=== PATIENT | male | born 1935 | race Caucasian/White ===

== ENCOUNTER 2017-04-30 16:56 | Inpatient (IN) | payer MEDICARE, OTHER ==
[~2017-04-30] VITALS: Ht 175.3 cm; Wt 95.0 kg
[2017-04-30] MEDS ORDERED: Polyethylene Glycol (PEG) 17 Gm Powder PO PRN (17:05)
[2017-04-30] MEDS ORDERED: Ondansetron 2 mg/mL 2 mL Inj IVPUSH PRN (17:05)
[2017-04-30] MEDS ORDERED: Alum-Mag Hydrox-Simeth 30 mL Suspension PO PRN (17:05)
[2017-04-30 17:15] VITALS: BP 177/87; PULSE 80; RESP 18; O2SAT 98
[2017-04-30 17:58] LABS: EOSINOPHILS % (AUTO) 3.8 % (0-5); MONOCYTES % (AUTO) 11.6 % (4-12); Mean Corpuscular Hemoglobin 30.3 pg (27.0-35.0); NEUTROPHILS % (AUTO) 62.6 % (40-74); Platelet Count 111 bil/L (150-400)
[2017-04-30] MEDS ORDERED: METO-272 PO (18:16)
[2017-04-30] MEDS ORDERED: GABA-502 PO (18:16)
[2017-04-30] MEDS ORDERED: FINA5TAB9 PO (18:16)
[2017-04-30] MEDS ORDERED: GLIP10TA10 PO (18:16)
[2017-04-30] MEDS ORDERED: INSU100I13 SUBQ (18:16)
[2017-04-30] MEDS ORDERED: ASPI-973 PO (18:16)
[2017-04-30] MEDS ORDERED: TAMS0.4C29 PO (18:16)
[2017-04-30] MEDS ORDERED: CHOL200047 PO (18:16)
[2017-04-30] MEDS ORDERED: OMEG-38 PO (18:16)
[2017-04-30] MEDS ORDERED: METF500T4 PO (18:16)
[2017-04-30] MEDS ORDERED: LISI-567 PO (18:16)
[2017-04-30 18:20] LABS: INR 0.94 ratio
[2017-04-30] MEDS ORDERED: Dextrose 10% 250 ML IV PRN (18:25)
[2017-04-30] MEDS ORDERED: Glucose 40% Oral Gel 15 Gm Tube PO PRN (18:25)
--- NOTE | 2017-04-30 18:33 | PCM.HPMED ---
Subjective Date of Service Apr 30, 2017 Primary Provider: Admitting Physician: Gee Arenas MD Primary Care Physician: Robe Becker MD Attending Physician: Gee Arenas MD Chief Complaint: Right leg swelling and pain History of Present Illness: 82-year-old male with a history of DVT and PE in 2005 was taken off of warfarin about 6 months ago. He noted that his leg was becoming a little swollen and painful 04/28, it has gotten progressively worse to the point where he could not walk on it today. He went to see his PMD for evaluation or to the urgent care clinic Doppler study showed extensive right lower extremity DVT, CT angiogram of the chest showed no PE. His denied having chest pain, dyspnea, nausea or vomiting or any other symptoms other than the right lower extremity swelling. Review of Systems: Gen.: No fevers chills weight loss weight gain Eyes: no visual disturbances or blurring vision HEENT: No nose/throat drainage, no pain in ears or throat, no hearing loss Lymph: No lymph nodes noted Cardiac: No chest pain, orthopnea, PND, palpitations ,or dyspnea on exertion Bilateral pedal edema right much greater than left. Pulmonary: no cough, wheezing or bringing up of sputum GI: No anorexia nausea vomiting blood or black in the stool : no dysuria hematuria urinary frequency or decrease in urine output Musculoskeletal: Joint swelling no joint pain no new muscle aches or back pain Neuro: No syncope, seizures no loss of consciousness no new focal weakness, numbness or tingling Psychiatric: New new anxiety insomnia or depression Endocrine: No new heat or cold intolerances polyuria or polydipsia Hematology: No lymphadenopathy or easy bleeding or bruising noted skin: No new rashes, stasis dermatitis Allergies Coded Allergies: No Known Allergies (Verified , 04/30/17) Home Medications Aspirin 81 mg daily Finasteride 5 mg at bedtime Gabapentin 300 by mouth twice a day Lisinopril 10 mg daily Toprol-XL 50 mg daily Tamsulosin 0.4 mg at bedtime Cholecalciferol 2000 units daily [place] threes plus daily 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 RARELY SMOKED. FEW A DAY WHEN HE DID FOR A FEW YRS.) Exam Vital Signs Vital Sign - Last Date Time Temp Pulse Resp B/P Pulse Ox O2 Delivery O2 Flow Rate FiO2 04/30/17 17:15 36.8 80 18 177/87 98 Room Air Exam Gen.- A+ O 3 no apparent distress. Obese male lying in bed Eyes- open conjunctiva clear, pupils equal nonicteric Mouth- oral mucosa moist, no exudate ENT- ears normal, nose normal Neck- supple/trach midline CVS- RRR no murmur or gallop Bilateral lower extremity edema, the right one is much larger and tighter than the left. Well up into the thigh Lungs- CTA GI- NABS/NT soft Musc- moving 4 no obvious deformity Neuro- cranial nerves II through XII intact to gross examination, nonfocal Skin- warm and dry, no rashes/lesions/wounds noted Psych- pleasant and appropriate, Lab and Diagnostics Result Diagram: 04/30/17174904/30/171749 X-Rays, CTs and MRIs US VEINOUS LEG DUPLEX UNILATERAL, RIGHT: Gloria Rick MD, PhD on 2016 at 13:55 Abnormal study demonstrating extensive deep vein thrombosis involving the right lower extremity. Dictated by: Gloria Rick MD, PhD on 04/30/2017 at 13:55 CT ANGIO CHEST : Thiago Alfaro M.D. on 04/30/2017 at 14:10 1. No pulmonary emboli. 2. No acute pulmonary process is suspected. 3. Heterogeneity of the upper portion of the right kidney is of uncertain significance and probably is related to volume averaging from overlying structures. However, the right renal lesion is difficult to exclude and if the patient is experiencing hematuria or other suspicious renal laboratory values, please consider a dedicated CT urogram. Dictated by: Thiago Alfaro M.D. on 04/30/2017 at 14:10 Assessment & Plan 82-year-old male admitted 04/30 with extensive DVT right lower extremity after being taken off warfarin 6 months earlier #DVT- -no PE symptoms of by CT course history - plan is for thrombectomy in the morning or at least evaluation by cardiology may do so -Dose Lovenox. This evening holding in the a.m. and not starting anticoagulation until there is a plan in place. #Diabetes -Decreasing dose of Lantus, holding metformin/glyburide -Sliding scale insulin until patient resumes diet he will be nothing by mouth at midnight -Continue gabapentin for diabetic neuropathy #HTN/-continue lisinopril/metoprolol #BPH-continue Flomax/finasteride #Prophylaxis-DVT no SCDs contraindicated in this setting, is getting full strength Lovenox at least one time tonight and then we will anticoagulate as per cardiology direction, GI not indicated #Disposition- patient full code from independent living his POA he tells me his name Sal Dukeers not sure if he has got paperwork so we should do that before he gets discharged Gee Arenas MD Apr 30, 2017 18:33
--- NOTE | 2017-04-30 19:22 | NUR ---
Arrival to Floor Patient arrives to floor in wheelchair as a direct admit. Patient alert and oriented upon arrival, states that pain is with a tolerable level. IV started per orders in left forearm. Care is ongoing.
[2017-04-30 20:03] VITALS: BP 158/74; PULSE 69; RESP 17; O2SAT 97
[2017-04-30] MEDS: Insulin LISPRO 300 Unit/3 mL Inj SUBQ SCH (22:00)
[2017-04-30] MEDS: Insulin GLARgine 100 Unit/mL Syringe SUBQ SCH (22:18)
[2017-04-30 23:41] VITALS: BP 121/60; PULSE 71; RESP 17; O2SAT 96
--- NOTE | 2017-05-01 04:04 | NUR ---
Activity pt has had an uneventful night. he has been resting in bed. he says he does not have any pain while laying in bed. he has been using his urinal independently at bedside. VSS on RA with no complaints of SOB. call light within reach, bed in low position, hourly rounding continues.
[2017-05-01 05:23] VITALS: BP 132/70; PULSE 77; RESP 17; O2SAT 96
[2017-05-01 06:00] LABS: BASOPHILS % (AUTO) 1.6 % (0-3); EOSINOPHILS % (AUTO) 5.7 % (0-5); MONOCYTES % (AUTO) 11.6 % (4-12); Mean Corpuscular Volume 92.9 fL (81-100); NEUTROPHILS % (AUTO) 57.1 % (40-74); Platelet Count 141 bil/L (150-400)
[2017-05-01 06:17] LABS: INR 0.96 ratio
[2017-05-01] MEDS: Insulin LISPRO 300 Unit/3 mL Inj SUBQ SCH ×4 (08:00→21:32)
[2017-05-01] MEDS: Omega-3 Fatty Acids 1,000 mg Capsule PO SCH (08:30)
[2017-05-01] MEDS: MeTOProlol XL 50 mg ER24 Tablet PO SCH (09:22)
--- NOTE | 2017-05-01 13:08 | NUR ---
Activity / Lovenox Pt refuses to use urinal and ambulates to bathroom with cane and staff SBA. Activity limited to bathroom only. MD aware Per MD Do not hold Lovenox. Please give Lovenox now. Relayed this to MD hospitalist. Care continues
--- NOTE | 2017-05-01 13:45 | PCM.PNMED ---
Subjective Date of Service May 01, 2017 Subjective Patient is a bit irritated he does not know the plan. I called cardiology Dr. Ryan for him. Dr. Ryan is coming. The plan is for thrombectomy today. Other than the leg bothering him and wanting to get on with things, he has no chest pain, no dyspnea, no nausea or vomiting. Exam Vital Signs Vital Sign - Last Date Time Temp Pulse Resp B/P Pulse Ox O2 Delivery O2 Flow Rate FiO2 05/01/17 05:23 36.7 77 17 132/70 96 Room Air Intake and Output 04/30/17 04/30/17 05/01/17 Cumulative From/Thru 15:00 23:00 07:00 04/30/17 17:24 - 05/01/17 05:23 Intake Total 318 ml 250 ml 568 ml Output Total 100 ml 350 ml 450 ml Balance 218 ml -100 ml 118 ml Intake Oral 318 ml 250 ml 568 ml Output Urine Total 100 ml 350 ml 450 ml # Voids 1 1 # Bowel Movements 0 0 Exam Gen.- A+ O 3 no apparent distress. Obese male lying in bed Eyes- open conjunctiva clear, pupils equal nonicteric Mouth-normal limits ENT-ears no deformity, nose no deformity, hearing intact Neck- supple/trach midline CVS- RRR Bilateral lower extremity edema, the right one is much larger and tighter than the left. Well up into the thigh Lungs-normal rate, no accessory muscle usage GI-generous abdomen Musc- moving 4 no obvious deformity Neuro- cranial nerves II through XII intact to gross examination, nonfocal Skin- warm and dry, no rashes/lesions/wounds noted Psych- pleasant and appropriate, Lab and Diagnostics Result Diagram: 05/01/17 0520 05/01/17 0520 X-Rays, CTs and MRIs US VEINOUS LEG DUPLEX UNILATERAL, RIGHT: Gloria Rick MD, PhD on 2016 at 13:55 Abnormal study demonstrating extensive deep vein thrombosis involving the right lower extremity. Dictated by: Gloria Rick MD, PhD on 04/30/2017 at 13:55 CT ANGIO CHEST : Thiago Alfaro M.D. on 04/30/2017 at 14:10 1. No pulmonary emboli. 2. No acute pulmonary process is suspected. 3. Heterogeneity of the upper portion of the right kidney is of uncertain significance and probably is related to volume averaging from overlying structures. However, the right renal lesion is difficult to exclude and if the patient is experiencing hematuria or other suspicious renal laboratory values, please consider a dedicated CT urogram. Dictated by: Thiago Alfaro M.D. on 04/30/2017 at 14:10 Assessment & Plan 82-year-old male admitted 04/30 with extensive DVT right lower extremity after being taken off warfarin 6 months earlier 05/01 blood sugar control adequate, blood pressure control no changes. Awaiting cardiology plans. #DVT- -no PE symptoms of by CT - plan is for eval by cards/potential thrombectomy 05/01 -Enoxaparin 1 mg/kilogram every 12 will start warfarin or other anticoagulant as per cardiology direction. #Diabetes-blood sugar 170-20 05/01 no changes will patient is nothing by mouth preop. -Decreasing dose of Lantus, holding metformin/glyburide -Sliding scale insulin until patient resumes diet he will be nothing by mouth at midnight -Continue gabapentin for diabetic neuropathy #HTN/-continue lisinopril/metoprolol #BPH-continue Flomax/finasteride #Prophylaxis-DVT no SCDs contraindicated in this setting, is getting full strength Lovenox at least one time tonight and then we will anticoagulate as per cardiology direction, GI not indicated #Disposition- patient full code from independent living his POA he tells me his name Sal Dukeers not sure if he has got paperwork so we should do that before he gets discharged Gee Arenas MD May 01, 2017 13:45
--- NOTE | 2017-05-01 14:00 | NUR ---
Room change Pt moves up to [facility] 3022. Report given to receiving nurse. All belongings with pt. Plan explained to pt and family at bedside. Pt taken via bed to [facility] by staff.
[2017-05-01 14:50] VITALS: BP 155/73; PULSE 62; RESP 18; O2SAT 96
--- NOTE | 2017-05-01 15:19 | NUR ---
Transfer to [facility] Pt arrived to room 3022 at ~1410 this afternoon, arrived via bed. Vitals obtained, pt introduced to staff and room and call light. Pt states R leg is sore, denies any pain medication. No redness noted to R leg, noticibly more swollen than L leg. Pt states soreness is top of knee all the way up the thigh. Pt amb to BR with cane, unsteady. Pt on RA, denies any SOB. Pt has been NPO since [place]. Bed in lowest, locked position and call light in reach.
--- NOTE | 2017-05-01 17:12 | CONS ---
[address] [address] CONSULTATION REPORT PATIENT: KARINA LYON : 1935 MR#: [id number] ADMIT: 04/30/2017 JOB ID: [id number] DATE OF SERVICE: 05/01/2017 CHIEF COMPLAINT: Swollen right leg. HISTORY OF PRESENT ILLNESS: This 82-year-old gentleman presented to the Urgent Care with swollen right leg. He has history of DVT in the past. He has history of pulmonary embolus and in 2005 he also had an IVC filter placed. He was started on Coumadin in 2009 and stayed on Coumadin for nearly 10-1/2 years. In October, his Coumadin was stopped. He did well up until recently when he started noticing swelling of his right leg. It got painful to the point where he sought immediate attention. He was admitted to the hospital and started on enoxaparin, and given the extent and high thrombus burden, I was asked to see him for consideration of catheter-directed thrombolysis. Currently the patient is not having any pain in his calves at rest. He states when he tries to walk, his right leg hurts. His right leg is swollen and has been so for approximately the last three days. PAST MEDICAL HISTORY: Significant for DVT and PE in 2005, status post IVC filter placement, status post acute [place] in 2005 with RCA stenting. History of acoustic neuroma. Benign prostatic . MEDICATIONS: At home: Aspirin, finasteride, gabapentin, lisinopril, Toprol, tamsulosin, cholecalciferol, [place]-3. PERSONAL HISTORY: He has no children and no siblings. His parents are . He used to smoked briefly about 40 years ago. Denies any alcohol or drug abuse. 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 REVIEW OF SYSTEMS: Comprehensive review of systems was done and pertinent negatives and positives are no fever, chills or rigors. No recent surgeries or upcoming surgeries. No TIAs, no strokes, no GI or bleeding. As mentioned, swelling in his right leg. FAMILY HISTORY: Negative for premature coronary artery disease. Both his parents as mentioned are . PHYSICAL EXAMINATION: Pulse 68, blood pressure 155/73. Neck is supple. No JVD. Chest: Clear. Heart sounds S1, S2, regular. No gallops. Abdomen is soft. Extremities: Right leg is red, it is swollen and the swelling extends up into his thigh. There is at least 2-3+ edema that extends into his thigh. FEED MIXER HELPER: Alert and oriented. IMAGING: CT scan negative for PE. Venous Doppler shows intraluminal thrombus that extends into the right common femoral vein, superficial vein and popliteal and also extends into the calf veins. 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 He should be on lifelong anticoagulation. With regards to catheter directed thrombolysis, given the extent of his thrombus burden, it is a reasonable procedure. I have explained the risks, benefits to the patient. It has tentatively been scheduled for . He should continue on enoxaparin twice daily till then. If there is significant reduction in his thrombus burden and it appears that he is responding to enoxaparin then I would recommend continuing with the enoxaparin. Of course, we could still plan ahead for Eliquis in order to reduce the risk of post thrombophlebitic syndrome down the line. I have discussed all this with the patient and he is willing to proceed ahead with Eliquis if deemed clinically reasonable. Next, with regard to his cardiac disease, I would recommend ongoing cardiac followup. Lastly he has never been worked up for a hypercoagulable state. I think it would be appropriate to do so. Hematology and GI consult would be recommended.
[2017-05-01 20:06] VITALS: BP 157/72; PULSE 68; RESP 16; O2SAT 96
[2017-05-01] MEDS: Insulin GLARgine 100 Unit/mL Syringe SUBQ SCH (21:31)
--- NOTE | 2017-05-02 04:37 | NUR ---
DVT at Right Extremity. Pt states some pain with ambulation at right leg, no need pain med when offered. 1+ pitting edema at bilateral LEs, right >left, no erythema or warm to touch, or no open area on skin. weak dorsalis pedis bilaterally. Scheduled Lovenox administered. Pt instructed limit activities to prevent dislodge of clots. Contradiction with SCDs. LEs elevated on pillow. Stable overnight.
[2017-05-02 06:14] VITALS: BP 144/76; PULSE 67; RESP 18; O2SAT 93
[2017-05-02] MEDS: Insulin LISPRO 300 Unit/3 mL Inj SUBQ SCH ×4 (07:58→21:02)
[2017-05-02] MEDS: Omega-3 Fatty Acids 1,000 mg Capsule PO SCH (08:06)
[2017-05-02] MEDS: MeTOProlol XL 50 mg ER24 Tablet PO SCH (08:07)
--- NOTE | 2017-05-02 09:13 | NUR ---
Social Work-initial assessment: Data:See initial assessment. Pt is a 82 y/o male who was admitted on 04/30/17 for DVT per H&P. Pt's insurance is [employer] and PCP is Robe Becker MD. EMR reviewed. Pt's readmission score is 3. SW met with pt at bedside, SW role explained. Pt is alert and oriented x3. Pt resides at in an apartment over a garage with 17 steps to enter. Pt uses a fww in the house and a cane outside of the house. Pt has no HH or SNF history. Pt does not drive and his friend Concetta assists with transportation. Pt has no jail care or VA benefits. SW discussed DPOA/ advanced directive, pt confirms this has been completed, SW encouraged a copy to be brought in. Pt confirms Concetta will be the one to pick him up at discharge. SW to follow for needs. SW provided phone number on white board in room. SW will continue to follow. Assessment;Pt who is independent at baseline. Plan:Pt to discharge home when medically stable via POV. SW to follow for needs. SW will continue to follow. PAZ De Leon Addendum: 05/02/17 at 0916 by THIERRY EDWARDS Amended: Links added.
[2017-05-02 13:21] VITALS: BP 154/72; PULSE 62; RESP 18; O2SAT 93
--- NOTE | 2017-05-02 16:10 | PCM.PNMED ---
Subjective Date of Service May 02, 2017 Subjective Patient reports some discomfort in calf but this improved since presentation. Denies any shortness of breath or palpitations. Otherwise no acute complaints though he has get the test is light by walking around on it this morning. Exam Vital Signs Vital Sign - Last Date Time Temp Pulse Resp B/P Pulse Ox O2 Delivery O2 Flow Rate FiO2 05/02/17 13:21 37.1 62 18 154/72 93 Room Air Intake and Output 05/01/17 05/01/17 05/02/17 Cumulative From/Thru 15:00 23:00 07:00 04/30/17 17:24 - 05/02/17 06:54 Intake Total 200 ml 200 ml 968 ml Output Total 680 ml 1130 ml Balance 200 ml -480 ml -162 ml Intake Oral 200 ml 200 ml 968 ml Output Urine Total 680 ml 1130 ml # Voids 5 6 # Bowel Movements 0 0 General: Alert, Oriented X3, Cooperative, No Acute Distress Mouth: Mucous Membr Moist/[place] Chest & Lungs: Clear to auscultation & percussion Cardiovascular: Regular Rate/Rhythm Extremities: Other (swelling left calf without any thin erythema. There is certainly tenderness, nonpitting edema. Severe pulses intact bilaterally. Extremities are well-perfused. ) Neurological: Grossly Neurologically Intact IVs and Medications Medications Reviewed: Medications were reviewed in detail Lab and Diagnostics Result Diagram: 05/01/17 0520 05/01/17 0520 X-Rays, CTs and MRIs US VEINOUS LEG DUPLEX UNILATERAL, RIGHT: Gloria Rick MD, PhD on 2016 at 13:55 Abnormal study demonstrating extensive deep vein thrombosis involving the right lower extremity. Dictated by: Gloria Rick MD, PhD on 04/30/2017 at 13:55 CT ANGIO CHEST : Thiago Alfaro M.D. on 04/30/2017 at 14:10 1. No pulmonary emboli. 2. No acute pulmonary process is suspected. 3. Heterogeneity of the upper portion of the right kidney is of uncertain significance and probably is related to volume averaging from overlying structures. However, the right renal lesion is difficult to exclude and if the patient is experiencing hematuria or other suspicious renal laboratory values, please consider a dedicated CT urogram. Dictated by: Thiago Alfaro M.D. on 04/30/2017 at 14:10 Assessment & Plan 82-year-old male admitted 04/30 with extensive DVT right lower extremity after being taken off warfarin 6 months earlier 05/01 blood sugar control adequate, blood pressure control no changes. Awaiting cardiology plans. #DVT- -no PE symptoms of by CT - plan for thrombectomy on 05/[address] Trevino -Enoxaparin 1 mg/kilogram every 12 will start warfarin or other anticoagulant as per cardiology direction. - We will consider transitioning to [facility] for discharge following completion of procedure. #Diabetes-blood sugar 170-20 05/01 no changes will patient is nothing by mouth preop. -Decreasing dose of Lantus, holding metformin/glyburide -Sliding scale insulin until patient resumes diet he will be nothing by mouth at midnight -Continue gabapentin for diabetic neuropathy #HTN/-continue lisinopril/metoprolol #BPH-continue Flomax/finasteride Pain Evaluation: Adequate Pain Control GI Prophylaxis: Not indicated VTE Prophylaxis: Sub-Q Enoxaparin Resuscitation Status: CPR: Attempt Resuscitation Time spent 25 minutes Diogenes Bowen DO May 02, 2017 16:10
--- NOTE | 2017-05-02 17:58 | NUR ---
RLE/plan Pt's RLE appeared much improved this AM. Remained edematous RUE > LUE. Measured at the calf and RLE 42cm and LLE 38.2cm. Pt reports some ache when ambulating but generally denies any pain. 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 Pt aware.
[2017-05-02 20:18] VITALS: BP 155/75; PULSE 67; RESP 16; O2SAT 96
[2017-05-02] MEDS: Insulin GLARgine 100 Unit/mL Syringe SUBQ SCH (21:00)
[2017-05-03 00:38] VITALS: BP 116/78; PULSE 91; RESP 16; O2SAT 95
[2017-05-03 04:36] VITALS: BP 151/73; PULSE 72; RESP 16; O2SAT 97
--- NOTE | 2017-05-03 05:35 | NUR ---
Right lower leg Right lower leg appears more swollen than left leg. patient reports pain in right leg only when ambulating. SBA with cane to bathroom. patient states "its much better than it was" lovenox shot given at 0100 per MD orders. vitals stable. will continue to monitor
[2017-05-03 06:29] LABS: INR 0.98 ratio
[2017-05-03] MEDS: Insulin LISPRO 300 Unit/3 mL Inj SUBQ SCH ×4 (07:57→22:00)
[2017-05-03] MEDS: MeTOProlol XL 50 mg ER24 Tablet PO SCH (07:58)
[2017-05-03] MEDS: Omega-3 Fatty Acids 1,000 mg Capsule PO SCH (07:58)
--- NOTE | 2017-05-03 09:16 | NUR ---
refusal of stool softeners Pt stated that he has not had a BM since 07/31/16. This RN offered pt stool softeners and pt refused stating that "this is normal for him."
--- NOTE | 2017-05-03 12:33 | NUR ---
ABBY Signed @ 8348 AM
--- NOTE | 2017-05-03 13:46 | PCM.PNMED ---
Subjective Date of Service May 03, 2017 Subjective Patient is somewhat frustrated as procedure he thought was going to occur today is now poorly scheduled for tomorrow Leg continues to cause him significant distress when walking what is not painful and lying in bed Continues to be more swollen demonstrated larger circumference when compared with left calf. Denies any acute complaints at this time. denies shortness of breath or chest pain specifically. Exam Vital Signs Vital Sign - Last Date Time Temp Pulse Resp B/P Pulse Ox O2 Delivery O2 Flow Rate FiO2 05/03/17 04:36 36.6 72 16 151/73 97 Room Air Intake and Output 05/02/17 05/02/17 05/03/17 Cumulative From/Thru 15:00 23:00 07:00 04/30/17 17:24 - 05/03/17 06:05 Intake Total 473 ml 1441 ml Output Total 525 ml 1655 ml Balance -52 ml -214 ml Intake Oral 473 ml 1441 ml Output Urine Total 525 ml 1655 ml # Voids 2 8 # Bowel Movements 0 Exam General: Alert, Oriented X3, Cooperative, No Acute Distress Mouth: Mucous Membranes Moist/[place] Chest & Lungs: Clear to auscultation & percussion Cardiovascular: Regular Rate/Rhythm Extremities: Swelling left calf without any thin erythema. There is certainly tenderness, nonpitting edema. Severe pulses intact bilaterally. Extremities are well-perfused. Neurological: Grossly Neurologically Intact IVs and Medications Medications Reviewed: Medications were reviewed in detail Lab and Diagnostics Result Diagram: 05/01/17 0505/01/17 05 X-Rays, CTs and MRIs US VEINOUS LEG DUPLEX UNILATERAL, RIGHT: Gloria Rick MD, PhD on 2016 at 13:55 Abnormal study demonstrating extensive deep vein thrombosis involving the right lower extremity. Dictated by: Gloria Rick MD, PhD on 04/30/2017 at 13:55 CT ANGIO CHEST : Thiago Alfaro M.D. on 04/30/2017 at 14:10 1. No pulmonary emboli. 2. No acute pulmonary process is suspected. 3. Heterogeneity of the upper portion of the right kidney is of uncertain significance and probably is related to volume averaging from overlying structures. However, the right renal lesion is difficult to exclude and if the patient is experiencing hematuria or other suspicious renal laboratory values, please consider a dedicated CT urogram. Dictated by: Thiago Alfaro M.D. on 04/30/2017 at 14:10 Assessment & Plan 82-year-old male admitted 04/30 with extensive DVT right lower extremity after being taken off warfarin 6 months earlier 05/01 blood sugar control adequate, blood pressure control no changes. Awaiting cardiology plans. #DVT- -no PE symptoms of by CT - plan for thrombectomy on 05/[address] Trevino -Enoxaparin 1 mg/kilogram every 12 will start warfarin or other anticoagulant as per cardiology direction. - We will consider transitioning to [facility] for discharge following completion of procedure. #Hypercoagulable state: Previous evaluation for cause of clotting was negative for routinely screening conditions, will not repeat at this time but life long anticoagulation certainly indicated #Diabetes-blood sugar 170-20 05/01 no changes will patient is nothing by mouth preop. -Decreasing dose of Lantus, holding metformin/glyburide -Sliding scale insulin until patient resumes diet he will be nothing by mouth at midnight -Continue gabapentin for diabetic neuropathy #HTN/-continue lisinopril/metoprolol #BPH-continue Flomax/finasteride Pain Evaluation: Adequate Pain Control GI Prophylaxis: Not indicated VTE Prophylaxis: Sub-Q Enoxaparin Resuscitation Status: CPR: Attempt Resuscitation Time spent 25 minutes Diogenes Bowen DO May 03, 2017 13:46
[2017-05-03 14:14] VITALS: BP 152/78; PULSE 71; RESP 16; O2SAT 97
[2017-05-03] MEDS: Insulin GLARgine 100 Unit/mL Syringe SUBQ SCH (20:02)
[2017-05-03 20:14] VITALS: BP 139/76; PULSE 65; RESP 16; O2SAT 96
--- NOTE | 2017-05-04 03:59 | NUR ---
NOC / NPO Continues w/ LE edema R>L. Skin is cool to the touch, warmer on R side as well. Encouraged LE elevation on pillows, patient declined to change position thru the noc. NPO since midnight for procedures in AM. VSS, Call light w/in reach. CTM for changes.
[2017-05-04 05:38] VITALS: BP 137/70; PULSE 69; RESP 16; O2SAT 94
[2017-05-04 06:26] LABS: APPEARANCE,URINE CLEAR (CLEAR,HAZY); COLOR,URINE YELLOW (YELLOW); OCCULT BLOOD,URINE TRACE (NEGATIVE); PH,URINE 5.5 (5.0-8.0); UROBILINOGEN,URINE NORMAL (NORMAL)
[2017-05-04 06:39] LABS: INR 0.96 ratio
[2017-05-04] MEDS: Insulin LISPRO 300 Unit/3 mL Inj SUBQ SCH ×4 (08:00→21:55)
[2017-05-04] MEDS: Omega-3 Fatty Acids 1,000 mg Capsule PO SCH (08:30)
[2017-05-04] MEDS: MeTOProlol XL 50 mg ER24 Tablet PO SCH (08:30)
--- NOTE | 2017-05-04 09:23 | DRSVH ---
PROCEDURE: US VEINOUS LEG DUPLEX UNILATERAL, RIGHT INDICATIONS: for DVT TECHNIQUE: Real-time imaging, as well as color and pulse Doppler interrogation, were performed of the lower extr emity deep veins from the inguinal ligament to the popliteal fossa. COMPARISON: 04/30/2017 FINDINGS: Persistent deep vein thrombosis is noted in the right lower extremity. There is occlusive t hrombosis of the common femoral and femoral veins proximally and in the mid section. There is mild no nphasic flow seen in the distal femoral vein suggesting partial recanalization. The right popliteal v ein remains occluded. IMPRESSION: Nearly complete persistent deep vein thrombosis in the right lower extremity, minimal nataliia w present in the distal femoral vein. Dictated by: Carlos Macdonald M.D. on 05/04/2017 at 9:18 Approved by: Carlos Macdonald M.D. on 05/04/2017 at 9:21
--- NOTE | 2017-05-04 10:00 | NUR ---
Procedure Pt changed mind regarding procedure that was scheduled this AM. Hospitalist requesting page to Dr Ramirez for review with pt at bedside. MD cr paged as requested by pt and MD. Pt remains NPO, at this time. Awaiting call back, will continue to monitor. Addendum: 05/04/17 at 1110 by MILTON MCGHEE RN No call back, MD aguilar again. Will continue to monitor, Addendum: 05/04/17 at 1223 by MILTON MCGHEE RN Dr Ramirez came to bedside, reviewed concerns with pt. Will place pt on scheduled for today as soon as possible. Will continue to monitor Addendum: 05/04/17 at 1345 by MILTON MCGHEE RN Off the unit for completion of Thrombectomy. Report given to Geoffrey Cao to be transferred to [place] [id number] after recovery. Addendum: 05/04/17 at 1612 by MILTON MCGHEE RN Pt transferred to 2009 - CCU, belongings and meds taken down by staff, report given to Sakshi Whitten.
[2017-05-04 12:16] VITALS: BP 171/81; PULSE 82; RESP 16; O2SAT 96
[2017-05-04 12:26] VITALS: BP 154/84
[2017-05-04] MEDS ORDERED: Heparin 1,000 Units/500 mL NS Premix IV ONE (13:14)
[2017-05-04] MEDS ORDERED: Heparin 10,000 Unit/1,000 mL NS Premix IV ONE (13:14)
[2017-05-04] MEDS ORDERED: Heparin 1,000 Unit/mL 10 mL Inj ONE (13:15)
[2017-05-04] MEDS ORDERED: fentaNYL-PF 50 mCg/mL 2 mL Inj ONE (13:54)
--- NOTE | 2017-05-04 14:47 | PCM.PNMED ---
Subjective Date of Service May 04, 2017 Subjective Patient is doing well today, lying in bed the pain in his right calf is not severe at all, much more tolerable. He has walked very little as this does exacerbate the pain, reports he is having an easier time walking to the bathroom but still significant distress when he puts weight on right foot. He talked with Dr. Trevino instrumentation manager earlier today, and the plan had been initially to proceed with thrombectomy but this morning patient was not sure. Dr. Trevino demonstrated significant clot still present, but was incurred some by improving condition. He gave patient the choice of initially elected to not proceed with surgery and rather to continue medical management and Coumadin therapy. Approximately one hour later however patient had change of thought felt he did want to proceed with thrombectomy, however at this time is surgical appointment had been canceled and he was placed to an add-on schedule later in the afternoon. Exam Vital Signs Vital Sign - Last Date Time Temp Pulse Resp B/P Pulse Ox O2 Delivery O2 Flow Rate FiO2 05/04/17 12:26 154/84 05/04/17 12:16 36.7 82 16 96 Room Air Intake and Output 05/03/17 05/03/17 05/04/17 Cumulative From/Thru 15:00 23:00 07:00 04/30/17 17:24 - 05/04/17 06:18 Intake Total 1036 ml 240 ml 2717 ml Output Total 825 ml 600 ml 3080 ml Balance 211 ml -360 ml -363 ml Intake Oral 1036 ml 240 ml 2717 ml Output Urine Total 825 ml 600 ml 3080 ml # Voids 8 # Bowel Movements 0 Exam General: Alert, Oriented X3, Cooperative, No Acute Distress Mouth: Mucous Membranes Moist/[place] Chest & Lungs: Clear to auscultation & percussion Cardiovascular: Regular Rate/Rhythm Extremities: Swelling left calf without any thin erythema. There is certainly tenderness, nonpitting edema. Dorsal pedis pulses intact bilaterally. Extremities are well-perfused. Neurological: Grossly Neurologically Intact IVs and Medications Medications Reviewed: Medications were reviewed in detail Lab and Diagnostics Result Diagram: 05/01/1751905/01/17 0520 X-Rays, CTs and MRIs US VEINOUS LEG DUPLEX UNILATERAL, RIGHT: Gloria Rick MD, PhD on 2016 at 13:55 Abnormal study demonstrating extensive deep vein thrombosis involving the right lower extremity. Dictated by: Gloria Rick MD, PhD on 04/30/2017 at 13:55 CT ANGIO CHEST : Thiago Alfaro M.D. on 04/30/2017 at 14:10 1. No pulmonary emboli. 2. No acute pulmonary process is suspected. 3. Heterogeneity of the upper portion of the right kidney is of uncertain significance and probably is related to volume averaging from overlying structures. However, the right renal lesion is difficult to exclude and if the patient is experiencing hematuria or other suspicious renal laboratory values, please consider a dedicated CT urogram. Dictated by: Thiago Alfaro M.D. on 04/30/2017 at 14:10 Assessment & Plan 82-year-old male admitted 04/30 with extensive DVT right lower extremity after being taken off warfarin 6 months earlier awaiting cardiology planned interventions. #DVT- -no PE symptoms of by CT - plan for thrombectomy on 05/[address] Trevino, though patient initially elected to forego this procedure earlier this morning he is now reconsidered and wishes to move forward. His placed on the surgical schedule unfortunately was removed and is now pending add-on procedure later this afternoon. Should procedure not be able to be conducted today he may have to wait as long as Sunday to proceed. -In the meantime we will continue Enoxaparin 1 mg/kilogram every 12hrs with plan to start warfarin following procedure. Should patient not undergo thrombolytic to me Dr. Trevino has recommended he be kept until reaching therapeutic INR given size of clot burden. #Hypercoagulable state: Previous evaluation for cause of clotting was negative for routinely screening conditions, will not repeat at this time but life long anticoagulation certainly indicated #Diabetes-blood sugar 170-20 05/01 no changes will patient is nothing by mouth preop. -Decreasing dose of Lantus, holding metformin/glyburide -Sliding scale insulin until patient resumes diet he will be nothing by mouth at midnight -Continue gabapentin for diabetic neuropathy #HTN/-continue lisinopril/metoprolol #BPH-continue Flomax/finasteride Disposition pending surgical procedure and/or therapeutic INR Pain Evaluation: Adequate Pain Control GI Prophylaxis: Not indicated VTE Prophylaxis: Sub-Q Enoxaparin Resuscitation Status: CPR: Attempt Resuscitation Time spent 25 minutes Diogenes Bowen DO May 04, 2017 14:47
[2017-05-04] MEDS ORDERED: Alteplase (Cathflo) Inj 10 MG in 0.9% Sodium Chloride 250 ML IV ONE ×2 (15:00→15:23)
[2017-05-04] MEDS ORDERED: Heparin 25,000 Unit/500 mL 0.45% NS Premix IV ONE (15:07)
--- NOTE | 2017-05-04 15:25 | DI95 ---
[address] [address] INTERVENTIONAL CARDIAC CATHETERIZATION PATIENT: KARINA LYON : 1935 MR#: [id number] ADMIT: 04/30/2017 JOB ID: [id number] PROCEDURE: 1. Catheter directed thrombolysis with EKOS. 2. Ultrasound guidance. 3. Venogram. INDICATION: Extensive DVT. The patient seemed to have an initial response to LMWH, with mild reduction in calf diameter but the next day he started havind leg discomfort and changed his mind and decided to proceed ahead with CDT PROCEDURAL DETAILS: The procedure was done via right popliteal approach with ultrasound guidance. With ultrasound guidance we were able to cannulate the popliteal vein. We accidentally inserted a micropuncture needle into the artery. Fifteen minutes of manual pressure was held to compress the popliteal artery. Following that, we were able to successfully redirect the micropuncture needle into the popliteal vein. The EKOS catheter and guide catheter were then placed in the common femoral vein. Fifty cm treatment length was chosen. The patient will have tPA infused for 6 hours. A venogram will be done subsequent to that. [facility]
[2017-05-04] MEDS ORDERED: Ondansetron 2 mg/mL 2 mL Inj IVPUSH PRN (15:55)
--- NOTE | 2017-05-04 15:59 | DRSVH ---
PROCEDURE: US GUIDE FOR VASCULAR ACCESS INDICATIONS: EKOS PROCEDURE IN FOOTWEAR MACHINERY INSTRUCTOR COMPARISON: None. FINDINGS: Technical assistance was provided in the Compensation Expert for venous access in the right leg. Acce ss to the right popliteal vein was provided for the referring physician. IMPRESSION: Limited exam for venous access in surgery Dictated by: Carlos Macdonald M.D. on 05/04/2017 at 15:56 Approved by: Carlos Macdonald M.D. on 05/04/2017 at 15:57
--- NOTE | 2017-05-04 16:09 | NUR ---
EKOS/Admit to CCU Pt Arrived to CCU at aprox 1530, with geochemical laboratory technician team. Dsg to R popliteal site well secured, c/d/i. RLE DP pulse palpable. tPA, coolant, heparin running per EKOS/food beverage supervisor orders. Heparin gtt infusing at 200units/hr to L wrist PIV, with NS TKO. VSS. SpO2 98% on RA. Pt denies pain. Per geochemical laboratory technician, plan is to pull sheath at 2230; pt to be NPO after 0000 to go back to geochemical laboratory technician at 0900 tomorrow morning.
[2017-05-04 16:19] VITALS: BP 138/71; PULSE 76; RESP 14; O2SAT 95
--- NOTE | 2017-05-04 18:15 | NUR ---
EKOS This RN noted sheet under RLE to be damp with clear fluid, notified flaking roll operator and Brine Supervisor. Drop Clipper contacting medical laboratory scientist to evaluate site; electroencephalographic technologist en route to evaluate. Pt denies pain, DP palpable. VSS. Addendum: 05/04/17 at 1921 by NERY MADERA RN laborer electroplating in, assessed EKOS and sheath, redressed the site.
[2017-05-04] MEDS: Heparin 10,000 Unit/1,000mL NS 10,000 UNIT in IV Premix 1 EACH IV SCH (18:45)
[2017-05-04 20:30] VITALS: BP 159/73; PULSE 78; RESP 13; O2SAT 98
[2017-05-04] MEDS ORDERED: [UNRECOGNIZED DRUG - OTHER] IV SCH (21:00)
[2017-05-04] MEDS ORDERED: HEPARIN IV SCH (21:00)
[2017-05-04] MEDS: Insulin GLARgine 100 Unit/mL Syringe SUBQ SCH (21:54)
[2017-05-05] VITALS (7 sets, daily range): BP systolic 121–163; BP diastolic 56–78; PULSE 65–82; RESP 13–17; O2SAT 93–97
[2017-05-05] MEDS ORDERED: Heparin Protocol Boluses IVPUSH PRN
--- NOTE | 2017-05-05 05:31 | NUR ---
O2/Heparin DVT gtt Pt had periods of apnea where he desaturated, SpO2 80%. Pt woke up and attempted to put patient on 2L NC. Pt initially refused. After low SpO2 a second time patient was persuaded to use Oxymask at 2LPM. PTT Heparin drawn at 0008 tonight resulted as 30.6; per MD written order, patient started on Heparin DVT/PE protocol of 18units/kg/hour. Heparin at 200units/hour stopped. Heparin 2units/ml solution infusing at 25ml/hour into right popliteal sheath. Sheath unchanged, pulses still weak to palpation.
[2017-05-05 07:48] LABS: BASOPHILS % (AUTO) 1.7 % (0-3); EOSINOPHILS % (AUTO) 6.9 % (0-5); MONOCYTES % (AUTO) 11.8 % (4-12); Mean Corpuscular Volume 90.8 fL (81-100); NEUTROPHILS % (AUTO) 53.4 % (40-74); Platelet Count 210 bil/L (150-400)
[2017-05-05] MEDS: Insulin LISPRO 300 Unit/3 mL Inj SUBQ SCH ×4 (08:00→21:45)
[2017-05-05] MEDS: Omega-3 Fatty Acids 1,000 mg Capsule PO SCH (08:30)
[2017-05-05] MEDS: MeTOProlol XL 50 mg ER24 Tablet PO SCH (08:30)
[2017-05-05] MEDS ORDERED: Heparin 1,000 Units/500 mL NS Premix IV ONE (09:27)
[2017-05-05] MEDS ORDERED: 0.9% Sodium Chloride 0 ML ONE (09:27)
[2017-05-05] MEDS ORDERED: Heparin 10,000 Unit/1,000 mL NS Premix IV ONE (09:28)
[2017-05-05] MEDS ORDERED: Alteplase (Cathflo) Inj 10 MG in 0.9% Sodium Chloride 250 ML IV ONE (09:30)
[2017-05-05] MEDS ORDERED: Heparin 1,000 Unit/mL 10 mL Inj ONE (10:06)
--- NOTE | 2017-05-05 12:44 | CS94 ---
[address] [address] DIAGNOSTIC CARDIAC CATHETERIZATION PATIENT: KARINA LYON : 1935 MR#: [id number] ADMIT: 04/30/2017 JOB ID: [id number] PROCEDURE NOTE -- CARDIAC CATHETERIZATION LABORATORY: SERVICE DATE: Sunday, May 05, 2017 ONLINE JOURNALIST: Jin Aguilar MD PROCEDURE: Venogram -- right lower extremity (post EKOS). CLINICAL DETAILS: This 82-year-old man presents to the Catheterization Laboratory for followup venogram, 16 hours after insertion of EKOS catheter to right popliteal venous access because of right lower extremity deep vein thrombosis. In the interim, he has had 6 hours of local thrombolytic infusion and heparin IV infusion. He is clinically stable. PROCEDURAL DETAILS: I discussed the procedure, including possible risks and complications with him; and he signed informed consent to proceed. In the Catheterization Laboratory, he was prepped sterilely and draped. RIGHT POPLITEAL VENOGRAM: Using the existing 6-Greek 10 cm side-arm sheath in the right popliteal vein, contrast was injected. Then consideration was given to reinserting EKOS catheter. He was placed prone. The sheath was exchanged sterilely for a new similar sheath. A long 0.035 J-tipped guidewire was used to enter the vein and then a superstiff Amplatz, a Versacore wire and an angled Glidewire were used. Because of uncertainty, the wire did not advance smoothly through the vein and re-insertion of the EKOS catheter was deferred. Procedure without difficulty. Patient tolerated procedure well. No complications. The popliteal venous sheath was removed and venous hemostasis was obtained without difficulty using manual pressure. The patient was transferred in stable condition from the Catheterization Laboratory back to the PCU unit for ongoing care including by the primary hospitalist service. I discussed the procedure findings and management considerations with the patient (no family present); with Cardiology; and with the hospitalist service including Dr. Paris. FINDINGS: Right popliteal venogram: Note, persistent venous filling defects with extensive collateralization. RECOMMENDATIONS: Continue standard treatment of DVT per your plan and protocol; including anticipate ongoing anticoagulation with heparin and oral anticholinergic coagulation.
--- NOTE | 2017-05-05 16:06 | PCM.PNMED ---
Subjective Date of Service May 05, 2017 Subjective Mr. Gonzáles states that he is doing quite well today. He has essentially been on bedrest secondary to the aborted EKOS procedure so cannot evaluate any pain with ambulation. He denies chest pain, dyspnea, SOB, or pain with deep inspiration. No significant overnight events Comprehensive ROS negative except as listed above. Exam Vital Signs Vital Sign - Last Date Time Temp Pulse Resp B/P Pulse Ox O2 Delivery O2 Flow Rate FiO2 05/05/17 12:00 36.4 79 17 142/63 97 Room Air 05/05/17 05:20 2.00 Intake and Output 05/04/17 05/04/17 05/05/17 Cumulative From/Thru 15:00 23:00 07:00 04/30/17 17:24 - 05/05/17 05:22 Intake Total 1532 ml 480 ml 4729 ml Output Total 300 ml 925 ml 4305 ml Balance 1232 ml -445 ml 424 ml Intake Oral 970 ml 0 ml 3687 ml IV Total 562 ml 480 ml 1042 ml Output Urine Total 300 ml 925 ml 4305 ml # Voids 8 # Bowel Movements 0 0 0 Exam Gen: A/O x3 pleasant cooperative gentleman in NAD Neck: Supple, non tender, no thyromegaly HEENT: PERRL, EOMI, no scleral icterus, no conjunctival pallor CV: RRR, no murmurs rubs or gallops Resp: Lungs CTA BL, no wheezing rales or rhonchi Abd: Soft, non tender, no organomegaly Extr: Left calf swollen and tender to palpation, peripheral pulses intact BL, no clubbing or cyanosis Neuro: CN 2-12 grossly intact, no focal neurologic deficit Psych: appropriate mood and affect. IVs and Medications IV Fluids 500 ml delivered with IV meds Medications Reviewed: Medications were reviewed in detail Lab and Diagnostics Item Value Date Time Red Blood Count 3.93 mil/mm3 L 05/05/17 07 Mean Corpuscular Volume 90.8 fL 05/05/17 07 Mean Corpuscular Hemoglobin 30.0 pg 05/05/17 07 Mean Corpuscular Hemoglobin Concent 33.1 % 05/05/17699 Red Cell Distribution Width 13.4 % 05/05/17699 Neutrophils (%) (Auto) 53.4 % 05/05/17 07 Lymphocytes (%) (Auto) 25.7 % 05/05/17 07 Monocytes (%) (Auto) 11.8 % 05/05/17 07 Eosinophils (%) (Auto) 6.9 % H 05/05/17 07 Basophils (%) (Auto) 1.7 % 05/05/17699 Estimat Glomerular Filtration Rate 77 mL/min 05/05/17699 Calcium Level 9.3 mg/dL 05/05/17699 Prothrombin Time 10.7 sec 05/05/17699 Prothromb Time International Ratio 1.00 ratio 05/05/17699 Activated Partial Thromboplast Time 48.7 sec H 05/05/17 1315 Fibrinogen 396 mg/dL H 05/05/17699 Result Diagram: 05/05/1769905/05/17699 X-Rays, CTs and MRIs US VEINOUS LEG DUPLEX UNILATERAL, RIGHT: -Abnormal study demonstrating extensive deep vein thrombosis involving the right lower extremity. Dictated by: Gloria Rick MD, PhD on 04/30/2017 at 13:55 CT ANGIO CHEST : Thiago Alfaro M.D. on 04/30/2017 at 14:10 1. No pulmonary emboli. 2. No acute pulmonary process is suspected. 3. Heterogeneity of the upper portion of the right kidney is of uncertain significance and probably is related to volume averaging from overlying structures. However, the right renal lesion is difficult to exclude and if the patient is experiencing hematuria or other suspicious renal laboratory values, please consider a dedicated CT urogram. Dictated by: Thiago Alfaro M.D. on 04/30/2017 at 14:10 . Assessment & Plan 82-year-old male admitted 04/30 with extensive DVT right lower extremity after being taken off warfarin 6 months earlier. Patient underwent attempted EKOS on , however the catheter was displaced and the procedure was aborted prematurely with the patient returning to the floor and placed on a Heparin Drip. DVT, POA, acute. Active -no PE symptoms of by CT -EKOS procedure on 05/05/17, this was aborted early due to displacement on TPA catheter -Patient returned to the floor on Heparin drip -Plan to transition the patient to oral anti-coagulation, either with Warfarin and Lovenox bridging, or NOAC depending upon patient preference and insurance coverage Hypercoagulable state, POA, chronic. Active -Previous evaluation for cause of clotting was negative for routinely screening conditions -will not repeat at this time but life long anticoagulation certainly indicated Diabetes mellitus type 2, POA, chronic. Active -Diabetic constant carb diet -Will adjust morning Lantus according to AM sugar, holding metformin/glyburide -Sliding scale insulin -Continue gabapentin for diabetic neuropathy Chronic conditions managed with home meds HTN/-continue lisinopril/metoprolol BPH-continue Flomax/finasteride Disposition: Patient essentially lives alone as his housemate is a long haul movers who will be gone for the next 2-3 weeks, has 17 stairs to negotiate to access apartment, would likely benefit from transitional placement pending return of functional status. Likely DC in 2-3 days. Pain Evaluation: Adequate Pain Control GI Prophylaxis: Not indicated VTE Prophylaxis: Other (Heparin drip) Resuscitation Status: CPR: Attempt Resuscitation Attending Statement The patient was seen and examined together with Dr. Esquivel on 05/05/2017 and I agree with the history, exam and plan as outlined in the note above. . Napoleon Esquivel DO May 05, 2017 16:06 Piyush Paris MD May 06, 2017 19:41
[2017-05-05] MEDS: Heparin 25K Unit/500mL 0.45 NS 25,000 UNIT in IV Premix 1 EACH IV SCH (16:58)
[2017-05-05] MEDS: Heparin 10,000 Unit/1,000mL NS 10,000 UNIT in IV Premix 1 EACH IV SCH (17:29)
--- NOTE | 2017-05-05 18:07 | NUR ---
EKOS sheath site/heparin gtt Pt had venous access sheath pulled in chemical lab supervisor at returned to to floor in stable condition. Dressing dry gauze and tegaderm, C/D/I with no bruising or drainage. Pedal pulses weak at baseline, non pitting edema bilaterally, somewhat more in right foot. Heparin gtt per DVT protocol, bolused PRN protocol. PIV intact, flushing well, no leaking or blood around it. Pt A&O, helps with turns and patient care. Frequent rounding continues.
[2017-05-05] MEDS: Insulin GLARgine 100 Unit/mL Syringe SUBQ SCH (21:47)
[2017-05-06] VITALS (8 sets, daily range): BP systolic 120–150; BP diastolic 61–78; PULSE 68–80; RESP 16–18; O2SAT 93–97
[2017-05-06 03:08] LABS: BASOPHILS % (AUTO) 1.6 % (0-3); EOSINOPHILS % (AUTO) 7.8 % (0-5); MONOCYTES % (AUTO) 11.3 % (4-12); Mean Corpuscular Volume 92.2 fL (81-100); Platelet Count 207 bil/L (150-400)
[2017-05-06 03:28] LABS: Magnesium 1.9 mg/dL (1.6-2.6); Phosphorus 3.4 mg/dL (2.5-4.9)
--- NOTE | 2017-05-06 06:12 | NUR ---
heparin gtt pts PTT elevated x2, decreased heparin gtt new rate running at 16units/kg/hr, pt with no signs of bleeding. next PTT at 0700.
[2017-05-06] MEDS: Heparin 25K Unit/500mL 0.45 NS 25,000 UNIT in IV Premix 1 EACH IV SCH (07:53)
[2017-05-06] MEDS: Omega-3 Fatty Acids 1,000 mg Capsule PO SCH (08:28)
[2017-05-06] MEDS: Insulin LISPRO 300 Unit/3 mL Inj SUBQ SCH ×4 (08:29→21:16)
[2017-05-06] MEDS: MeTOProlol XL 50 mg ER24 Tablet PO SCH (08:29)
--- NOTE | 2017-05-06 14:06 | NUR ---
Activity and Heparin IV Pt. sat on chair for lunch. He reported he normally uses a cane or a FWW at home. He ambulated in the hallway with a FWW and SBA after lunch. He walked 250 feet. Gait slow but steady. Heparin IV was stopped per Dr. Paris and Dr. Howard's order. Pt. to be on Lovenox SQ and Coumadin PO. Pt. agreeable with treatment plan.
--- NOTE | 2017-05-06 16:45 | NUR ---
Social Work Note: Continued Discharge Planning Data& Assessment: Per MD pt is not medically ready for discharge at this time. SW met with pt at bedside to check in and assess for any unmet needs. Pt denies any needs at this time. SW to follow up with pt regarding final PT recommendations when evaluation is complete. Pt states that he was able to ambulate the halls with nursing staff with no issues. Pt is now also on room air. SW to continue to follow. Plan: Anticipated discharge home via POV when medically ready. Pt denies any other needs at this time. SW to continue to follow. PAZ Guthrie
--- NOTE | 2017-05-06 16:47 | NUR ---
ABBY Signed PAZ Guthrie
[2017-05-06] MEDS: Heparin 10,000 Unit/1,000mL NS 10,000 UNIT in IV Premix 1 EACH IV SCH (18:05)
[2017-05-06] MEDS ORDERED: Glucose 40% Oral Gel 15 Gm Tube PO PRN (18:15)
--- NOTE | 2017-05-06 18:19 | PCM.PNMED ---
Subjective Date of Service May 06, 2017 Subjective Patient doing well today. She is to go home. . some concern due to his untreated DVT and undergoing heparin therapy. He will need to be anticoagulated appropriately and Lovenox should be adequate to bridge as an outpatient. Patient denies review of systems. Exam Vital Signs Vital Sign - Last Date Time Temp Pulse Resp B/P Pulse Ox O2 Delivery O2 Flow Rate FiO2 05/06/17 16:39 37.0 70 18 132/68 97 Room Air 05/05/17 05:20 2.00 Intake and Output 05/05/17 05/05/17 05/06/17 Cumulative From/Thru 15:00 23:00 07:00 04/30/17 17:24 - 05/06/17 05:54 Intake Total 1497 ml 608 ml 6834 ml Output Total 1100 ml 800 ml 6205 ml Balance 397 ml -192 ml 629 ml Intake Oral 756 ml 200 ml 4643 ml IV Total 741 ml 408 ml 2191 ml Output Urine Total 1100 ml 800 ml 6205 ml # Voids 2 10 # Bowel Movements 0 Exam Gen: A/O x3 pleasant cooperative gentleman in NAD CV: RRR, no murmurs rubs or gallops Resp: Lungs CTA BL, no wheezing rales or rhonchi Abd: Soft, non tender, no organomegaly Extr: Left calf swollen and non-tender to palpation, peripheral pulses intact BL Neuro: CN 2-12 grossly intact, no focal neurologic deficit Psych: appropriate mood and affect. IVs and Medications Medications Reviewed: Medications were reviewed in detail Lab and Diagnostics Result Diagram: 05/06/1725405/06/17254 X-Rays, CTs and MRIs US VEINOUS LEG DUPLEX UNILATERAL, RIGHT: -Abnormal study demonstrating extensive deep vein thrombosis involving the right lower extremity. Dictated by: Gloria Rick MD, PhD on 04/30/2017 at 13:55 CT ANGIO CHEST : Thiago Alfaro M.D. on 04/30/2017 at 14:10 1. No pulmonary emboli. 2. No acute pulmonary process is suspected. 3. Heterogeneity of the upper portion of the right kidney is of uncertain significance and probably is related to volume averaging from overlying structures. However, the right renal lesion is difficult to exclude and if the patient is experiencing hematuria or other suspicious renal laboratory values, please consider a dedicated CT urogram. Dictated by: Thiago Alfaro M.D. on 04/30/2017 at 14:10 . Assessment & Plan 82-year-old male admitted 04/30 with extensive DVT right lower extremity after being taken off warfarin 6 months earlier. Patient underwent attempted EKOS on , however the catheter was displaced and the procedure was aborted prematurely with the patient returning to the floor and placed on a Heparin Drip. Extensive acute DVT, POA, Active -no PE symptoms of by CT -EKOS procedure on 05/05/17, this was aborted early due to displacement on TPA catheter -Continue heparin drip -Warfarin with Lovenox bridging started today 05/06/17 Hypercoagulable state, POA, chronic. Active -Previous evaluation for cause of clotting was negative for routinely screening conditions -will not repeat at this time but life long anticoagulation certainly indicated -Consider outpatient follow-up with hematology for discontinuation of warfarin for clotting workup Diabetes mellitus type 2, POA, chronic. Active -Diabetic constant carb diet -Increase Lantus to 15 units at bedtime -Moderate correctional with no sliding scale currently -Continue gabapentin for diabetic neuropathy Chronic conditions managed with home meds HTN/-continue lisinopril/metoprolol BPH-continue Flomax/finasteride Disposition: Patient essentially lives alone as his housemate is a long haul telegraph repeater mechanic who will be gone for the next 2-3 weeks, has 17 stairs to negotiate to access apartment. Physical therapy ordered for evaluation late in the day. Likely assessment tomorrow. Discharged likely in 1-2 days Pain Evaluation: Adequate Pain Control GI Prophylaxis: Not indicated VTE Prophylaxis: Other (Heparin drip) Resuscitation Status: CPR: Attempt Resuscitation Attending Statement The patient was seen and examined together with Dr. Howard on 05/06/2017 and I agree with the history, exam and plan as outlined in the note above. . John Howard DO May 06, 2017 18:19 Piyush Paris MD May 06, 2017 19:42
--- NOTE | 2017-05-06 19:04 | PCM.CONPHA ---
Subjective Date of Service: May 06, 2017 Right leg swelling and pain Reason for Pharmacy Consult: Anticoagulation Management Objective Vital Signs Date Time Temp Pulse Resp B/P Pulse Ox O2 Delivery O2 Flow Rate FiO2 05/06/17 16:39 37.0 70 18 132/68 97 Room Air 05/06/17 11:31 36.7 74 16 123/61 95 Room Air 05/06/17 08:50 74 05/06/17 08:16 36.6 76 18 139/78 94 Room Air 05/06/17 03:42 36.6 74 17 120/68 93 Room Air 05/06/17 00:44 80 05/05/17 23:36 36.6 82 16 127/65 93 Room Air 05/05/17 19:53 37.0 81 16 163/78 95 Room Air Intake and Output 05/04/17 05/05/17 05/06/17 00:00 00:00 00:00 Intake Total 1509 ml 1772 ml 1977 ml Output Total 1350 ml 900 ml 2025 ml Balance 159 ml 872 ml -48 ml Weight (Kilograms): 95.100 Height (Feet): 5 Height (Inches): 9.00 Test 05/03/17 05:45 05/04/17 04:00 05/05/17 07:00 05/06/17 02:55 Hemoglobin A1c 8.7% (4.8-5.6) Urine Color Yellow (YELLOW) Urine Appearance Clear (CLEAR,HAZY) Urine pH 5.5 (5.0-8.0) Urine Specific [place] 1.020 (1.003-1.035) Urine Protein Negativemg/dL (NEG,TRACE) Urine Glucose (UA) 100mg/dL (NEGATIVE) Urine Ketones Negativemg/dL (NEGATIVE) Urine Occult Blood Trace (NEGATIVE) Urine Nitrite Negative (NEGATIVE) Urine Bilirubin Negative (NEGATIVE) Urine Urobilinogen Normalmg/dL (NORMAL) Urine Leukocyte Esterase Negative (NEGATIVE) Urine RBC 3-10/hpf (0-2) Urine WBC 0-5/hpf (0-5) Urine Epithelial Cells Occasional/hpf (NONE-MOD) Urine Crystals None seen (NONE SEEN) Urine Bacteria Few/hpf (NONE-FEW) Urine Hyaline Casts None/lpf (NONE) Urine Granular Casts None seen (NONE SEEN) Urine Waxy Casts None seen (NONE SEEN) Urine Red Blood Cell Casts None seen (NONE SEEN) Urine White Blood Cell Casts None seen (NONE SEEN) Urine Mucus None seen (None Seen) Urine Trichomonas None seen (NONE SEEN) Urine Yeast None (NONE SEEN) Urinalysis Comment None Urine Culture Reflexed Not indicated Hold Urine Received (Received) Fibrinogen 396mg/dL (157-380) White Blood Count 6.3th/mm3 (3.8-10.1) Red Blood Count 3.70mil/mm3 (4.40-5.80) Hemoglobin 11.1g/dL (13.8-17.2) Hematocrit 34.1% (41.0-50.0) Mean Corpuscular Volume 92.2fL (81-100) Mean Corpuscular Hemoglobin 30.0pg (27.0-35.0) Mean Corpuscular Hemoglobin Concent 32.6% (32.0-37.0) Red Cell Distribution Width 13.4% (12.3-15.4) Platelet Count 207bil/L (150-400) Neutrophils (%) (Auto) 52.0% (40-74) Lymphocytes (%) (Auto) 27.0% (14-46) Monocytes (%) (Auto) 11.3% (4-12) Eosinophils (%) (Auto) 7.8% (0-5) Basophils (%) (Auto) 1.6% (0-3) Prothrombin Time 10.7sec (8.1-12.5) Prothromb Time International Ratio 1.00ratio Sodium Level 138mEq/L (134-144) Potassium Level 4.2mEq/L (3.5-5.2) Chloride Level 102mEq/L (97-108) Carbon Dioxide Level 22mmol/L (18-29) Blood Urea Nitrogen 18mg/dL (8-27) Creatinine 1.17mg/dL (0.76-1.27) Estimat Glomerular Filtration Rate 63mL/min (>59) Glucose Level 228mg/dL (60-99) Calcium Level 9.1mg/dL (8.5-10.1) Phosphorus Level 3.4mg/dL (2.5-4.9) Magnesium Level 1.9mg/dL (1.6-2.6) Total Bilirubin 0.2mg/dL (0.0-1.2) Aspartate Amino Transf (AST/SGOT) 25U/L (0-50) Alanine Aminotransferase (ALT/SGPT) 24U/L (0-44) Alkaline Phosphatase 51U/L (25-160) Total Protein 6.6g/dL (6.4-8.4) Albumin 3.2g/dL (3.4-5.0) Test 05/06/17 08:25 Activated Partial Thromboplast Time 114.0sec (22.8-33.0) Assessment/Plan Assessment/Plan WARFARIN MANAGEMENT A\ 82yo M admitted for DVT Currently on a Heparin drip and will transition to Enoxaparin tonight and bridge to Warfarin for outpatient. Current INR =1 Goal INR =2-3 HCT+34.1 Ird=993 P\ Will start Warfarin 2.5mg po x1 tonight and check daily INRs to adjust dose to meet goal INR. Justino Flores [facility] May 06, 2017 19:04
[2017-05-06] MEDS ORDERED: Insulin GLARgine 100 Unit/mL Syringe SUBQ SCH (21:00)
[2017-05-07 00:10] VITALS: BP 118/66; PULSE 74; RESP 16; O2SAT 95
[2017-05-07 03:43] LABS: BASOPHILS % (AUTO) 1.4 % (0-3); EOSINOPHILS % (AUTO) 5.8 % (0-5); MONOCYTES % (AUTO) 11.2 % (4-12); Mean Corpuscular Hemoglobin 29.9 pg (27.0-35.0); Mean Corpuscular Volume 93.1 fL (81-100); NEUTROPHILS % (AUTO) 49.5 % (40-74); Platelet Count 232 bil/L (150-400)
[2017-05-07 03:44] VITALS: BP 132/64; PULSE 73; RESP 20; O2SAT 94
[2017-05-07 04:03] LABS: INR 0.95 ratio
--- NOTE | 2017-05-07 05:00 | NUR ---
ambulation pt ambulating to bathroom with FWW independently, tolerating fair, a little weak, pt with intermittent pain in right leg with ambulation.
[2017-05-07 08:49] VITALS: BP 124/65; PULSE 68; RESP 20; O2SAT 94
[2017-05-07] MEDS: Insulin LISPRO 300 Unit/3 mL Inj SUBQ SCH ×2 (08:55→12:25)
[2017-05-07] MEDS: MeTOProlol XL 50 mg ER24 Tablet PO SCH (08:56)
[2017-05-07] MEDS: Omega-3 Fatty Acids 1,000 mg Capsule PO SCH (08:56)
[2017-05-07 11:24] VITALS: PULSE 69
--- NOTE | 2017-05-07 11:33 | NUR ---
Evaluation completed. Please go to "Notes" then click on "Assessments and Notes" (bottom left corner of screen). Then select appropriate discipline tab on top of screen.
[2017-05-07 12:32] VITALS: BP 101/51; PULSE 94; RESP 20; O2SAT 96
[2017-05-07] MEDS ORDERED: LOV100 SUBQ (13:04)
[2017-05-07] MEDS ORDERED: Warfarin per Pharmacist XX (13:04)
--- NOTE | 2017-05-07 13:10 | PCM.DIMED ---
TATYANA GOODEN DO 05/07/17 1301: Discharge Instructions Date of Service May 07, 2017 Dates of Hospitalization Apr 30, 2017 at 16:56 Discharge Diagnosis Discharge Diagnosis DVT of Left Lower Extremity. Medication Instructions Additional med instructions Start warfarin daily at 2.5 mg per day. Follow up with the Coumadin clinic in [place] in 2-3 days. Continue Lovenox shots at home every 12 hours until cleared by Coumadin clinic. ie... When your INR is therapeutic (INR 2-3.) At which you can stop Lovenox shots. Diet Discharge Diet: No restrictions Activity Discharge Activity: No restrictions Call your provider Call your provider for: Fever or Chills, Shortness of breath, Bleeding, Chest pain, Excessive diarrhea, Weakness (unilateral), Other (Increased swelling and pain in your lower extremities. ) Patient Instructions Follow-up plan See you primary care physician Dr. Becker in 1-2 weeks time. Follow-up with PCP in: 2 weeks (1-2 weeks. ) Piyush Paris MD 05/09/17 1827: Discharge Instructions Attending's Statement The patient was seen and examined together with Dr. Gooden on 05/07/2017 and I agree with the history, exam and plan as outlined in the note above. . TATYANA GOODEN DO May 07, 2017 13:01 Piyush Paris MD May 09, 2017 18:27
--- NOTE | 2017-05-07 14:07 | NUR ---
Social Work Note: Discharge Data& Assessment: Per pt is medically improved and ready for discharge. Eliecer Singh is a 82 year old male admitted on 04/30/2017 for DVT. Per pt is medically improved and ready for discharge. PT cleared pt to return home as pt is at his baseline. Pt neighbor transporting pt home and present for all DC paperwork/instructions for further support at home. Pt denies any other needs. No other discharge needs identified. Plan: Per pt is medically ready to discharge home via POV. Pt denies any other needs. No other discharge needs identified. PAZ Guthrie
--- NOTE | 2017-05-07 14:32 | NUR ---
Discharge Patient left unit via wheelchair with friend and IRONWORKER in a stable condition. IV DC'd intact, tele removed, all personal belongings with patient. Two new prescriptions of Lovenox and Warfarin discussed. Called patient's preferred pharmacy to verify that they have lovenox 100mg sub Q in stock which they do. Patient demonstrated Lovenox injection this AM by self administering his 0830 dose successfully. Discussed next due times of both Warfarin and Lovenox and the importance of taking these medications as prescribed -- patient and friend who helps manage care verbalized understanding. All other medications to be continued, with next due times written and discussed, patient and friend verbalized understanding. No medications to stop. Discussed follow up appointments at INR clinic in 2-3 days (appointment made prior to DC) in addition to follow up with PCP in 2 weeks (appointment made prior to DC). Patient had no questions at time of DC.
--- NOTE | 2017-05-07 18:46 | PCM.DC.MED ---
Discharge Summary Date of Service May 07, 2017 Dates of Hospitalization Date of Hospital Admission Apr 30, 2017 at 16:56 Date of Discharge: May 07, 2017 Providers: Admitting Physician: Piyush Paris MD Primary Care Physician: Robe Becker MD Attending Physician: Piyush Paris MD Diagnosis at Time of Discharge Diagnosis at Time of Discharge DVT of Left Lower Extremity. Procedures XRay, CTs & MRIs US VEINOUS LEG DUPLEX UNILATERAL, RIGHT: -Abnormal study demonstrating extensive deep vein thrombosis involving the right lower extremity. Dictated by: Gloria Rick MD, PhD on 04/30/2017 at 13:55 CT ANGIO CHEST : Thiago Alfaro M.D. on 04/30/2017 at 14:10 1. No pulmonary emboli. 2. No acute pulmonary process is suspected. 3. Heterogeneity of the upper portion of the right kidney is of uncertain significance and probably is related to volume averaging from overlying structures. However, the right renal lesion is difficult to exclude and if the patient is experiencing hematuria or other suspicious renal laboratory values, please consider a dedicated CT urogram. Dictated by: Thiago Alfaro M.D. on 04/30/2017 at 14:10 . Brief History 82-year-old male admitted 04/30 with extensive DVT right lower extremity after being taken off warfarin 6 months earlier. Patient underwent attempted EKOS on , however the catheter was displaced and the procedure was aborted prematurely with the patient returning to the floor and placed on a Heparin Drip. He was bridged to warfarin with Lovenox (05/06). Patient was maintained on a diabetic carb consistent diet. Discharged home on 05/07. Hospital Course Extensive acute DVT, POA, Active - No PE symptoms of by CT - EKOS procedure on 05/05/17, this was aborted early due to displacement on TPA catheter - Warfarin with Lovenox bridging started today 05/06/17 and to continue as an outpatient till INR is within goal 2-3. Outpatient prescriptions given. - Continue to visit coumadin clinic to follow INR values. - See your primary care physician in follow up within 1-2 weeks. Hypercoagulable state, POA, chronic. Active - Previous evaluation for cause of clotting was negative for routinely screening conditions. - Consider outpatient follow-up with hematology for discontinuation of warfarin for clotting workup. Diabetes mellitus type 2, POA, chronic. Active - Diabetic constant carb diet. - Continue gabapentin for diabetic neuropathy. Chronic conditions managed with home meds - HTN/-continue lisinopril/metoprolol, managed by your primary care physician. BPH-continue Flomax/finasteride Exam Vital Signs (Last) Date Time Temp Pulse Resp B/P Pulse Ox O2 Delivery O2 Flow Rate FiO2 05/07/17 12:32 36.7 94 20 101/51 96 Room Air 05/05/17 05:20 2.00 Exam Gen: A/O x3 pleasant cooperative gentleman in NAD CV: RRR, no murmurs rubs or gallops Resp: Lungs CTA BL, no wheezing rales or rhonchi Abd: Soft, non tender, no organomegaly Extr: Left calf swollen and non-tender to palpation, peripheral pulses intact BL Neuro: CN 2-12 grossly intact, no focal neurologic deficit Psych: appropriate mood and affect. Test 05/03/17 05:45 05/04/17 04:00 05/05/17 07:00 05/06/17 02:55 Hemoglobin A1c 8.7% (4.8-5.6) Urine Color Yellow (YELLOW) Urine Appearance Clear (CLEAR,HAZY) Urine pH 5.5 (5.0-8.0) Urine Specific [place] 1.020 (1.003-1.035) Urine Protein Negativemg/dL (NEG,TRACE) Urine Glucose (UA) 100mg/dL (NEGATIVE) Urine Ketones Negativemg/dL (NEGATIVE) Urine Occult Blood Trace (NEGATIVE) Urine Nitrite Negative (NEGATIVE) Urine Bilirubin Negative (NEGATIVE) Urine Urobilinogen Normalmg/dL (NORMAL) Urine Leukocyte Esterase Negative (NEGATIVE) Urine RBC 3-10/hpf (0-2) Urine WBC 0-5/hpf (0-5) Urine Epithelial Cells Occasional/hpf (NONE-MOD) Urine Crystals None seen (NONE SEEN) Urine Bacteria Few/hpf (NONE-FEW) Urine Hyaline Casts None/lpf (NONE) Urine Granular Casts None seen (NONE SEEN) Urine Waxy Casts None seen (NONE SEEN) Urine Red Blood Cell Casts None seen (NONE SEEN) Urine White Blood Cell Casts None seen (NONE SEEN) Urine Mucus None seen (None Seen) Urine Trichomonas None seen (NONE SEEN) Urine Yeast None (NONE SEEN) Urinalysis Comment None Urine Culture Reflexed Not indicated Hold Urine Received (Received) Fibrinogen 396mg/dL (157-380) Phosphorus Level 3.4mg/dL (2.5-4.9) Magnesium Level 1.9mg/dL (1.6-2.6) Test 05/06/17 08:25 05/07/17 02:55 Activated Partial Thromboplast Time 114.0sec (22.8-33.0) White Blood Count 7.7th/mm3 (3.8-10.1) Red Blood Count 4.05mil/mm3 (4.40-5.80) Hemoglobin 12.1g/dL (13.8-17.2) Hematocrit 37.7% (41.0-50.0) Mean Corpuscular Volume 93.1fL (81-100) Mean Corpuscular Hemoglobin 29.9pg (27.0-35.0) Mean Corpuscular Hemoglobin Concent 32.1% (32.0-37.0) Red Cell Distribution Width 13.5% (12.3-15.4) Platelet Count 232bil/L (150-400) Neutrophils (%) (Auto) 49.5% (40-74) Lymphocytes (%) (Auto) 31.5% (14-46) Monocytes (%) (Auto) 11.2% (4-12) Eosinophils (%) (Auto) 5.8% (0-5) Basophils (%) (Auto) 1.4% (0-3) Prothrombin Time 10.2sec (8.1-12.5) Prothromb Time International Ratio 0.95ratio Sodium Level 138mEq/L (134-144) Potassium Level 4.4mEq/L (3.5-5.2) Chloride Level 102mEq/L (97-108) Carbon Dioxide Level 20mmol/L (18-29) Blood Urea Nitrogen 24mg/dL (8-27) Creatinine 1.32mg/dL (0.76-1.27) Estimat Glomerular Filtration Rate 55mL/min (>59) Glucose Level 237mg/dL (60-99) Calcium Level 10.1mg/dL (8.5-10.1) Total Bilirubin 0.2mg/dL (0.0-1.2) Aspartate Amino Transf (AST/SGOT) 23U/L (0-50) Alanine Aminotransferase (ALT/SGPT) 25U/L (0-44) Alkaline Phosphatase 63U/L (25-160) Total Protein 7.2g/dL (6.4-8.4) Albumin 3.7g/dL (3.4-5.0) Discharge Medications Discharge Medications ([Warfarin per Pharmacist]) 1 EA EA 2.5 EA XX DAILY@17 Prescribed by: TATYANA GOODEN, Aspirin (Aspirin) 81 Mg Tablet 81 MG PO DAILY (Reported) Cholecalciferol (Vitamin D3) (Vitamin D3) 2,000 Unit Capsule 2,000 UNIT PO QAM ( Reported) Enoxaparin (Lovenox) 100 Mg/Ml Syringe 100 MG SUBQ Q12 Prescribed by: TATYANA GOODEN DO Finasteride (Finasteride) 5 Mg Tablet 5 MG PO HS (Reported) Gabapentin (Gabapentin) 300 Mg Capsule 300 MG PO BID (Reported) Glipizide (Glipizide) 10 Mg Tablet 10 MG PO BID (Reported) Insulin Glargine (Lantus U100 Solostar Insulin Pen) 100 Unit/1 Ml Insuln.pen 12 UNITS SUBQ HS (Reported) Lisinopril (Lisinopril) 20 Mg Tablet 10 MG PO DAILY (Reported) Metformin (Metformin) 500 Mg Tablet 250 MG PO BID (Reported) Metoprolol Succinate ER (Metoprolol Succinate ER) 50 Mg Tab.er.24h 50 MG PO DAILY (Reported) [place]-3/Dha/Epa/Fish Oil (Fish Oil 1,000 mg Softgel) 1 Each Capsule 1 EACH PO DAILY (Reported) Tamsulosin ER (Tamsulosin ER) 0.4 Mg Cap.er.24h 0.4 MG PO HS (Reported) Additional med instructions Start warfarin daily at 2.5 mg per day. Follow up with the Coumadin clinic in [place] in 2-3 days. Continue Lovenox shots at home every 12 hours until cleared by Coumadin clinic. ie... When your INR is therapeutic (INR 2-3.) At which you can stop Lovenox shots. Followup Plan Follow-up plan See you primary care physician Dr. Becker in 1-2 weeks time. Discharge Diet: No restrictions Discharge Activity: No restrictions Follow-up with PCP in: 2 weeks (1-2 weeks. ) Time spent Greater than 30 minutes was spent in preparation of discharge with greater than 50% of that time dedicated to patient counseling and coordination of care. . Attending Statement The patient was seen and examined together with Dr. Gooden on 05/07/2017 and I agree with the history, exam and plan as outlined in the note above. . copies to: Robe Becker MD, COREY P DO May 07, 2017 18:46 Piyush Paris MD May 09, 2017 18:28
== END 2017-05-07 14:30 | disposition home or self-care (01) | DRG 300 ==
LOC: OSC 16:56 → MPC 05-01 13:56 → PCC 05-04 14:31 → CCU 05-04 15:00 → PCC 05-05 16:05
PROVIDERS: ADMIT Internal Medicine; ATTEND Hospitalist
PROC: 06HM33Z Insertion of Infusion Device into Right Femoral Vein, Percutaneous Approach (ICD-10-PCS; principal; 2017-05-04)
PROC: B54BZZA Ultrasonography of Right Lower Extremity Veins, Guidance (ICD-10-PCS; 2017-05-04)
PROC: B51B1ZZ Fluoroscopy of Right Lower Extremity Veins using Low Osmolar Contrast (ICD-10-PCS; 2017-05-04)
PROC: 3E03317 Introduction of Other Thrombolytic into Peripheral Vein, Percutaneous Approach (ICD-10-PCS; 2017-05-04)
PROC: B51B1ZZ Fluoroscopy of Right Lower Extremity Veins using Low Osmolar Contrast (ICD-10-PCS; 2017-05-05)
DX: I82.411 Acute embolism and thrombosis of right femoral vein (principal); D68.59 Other primary thrombophilia; I97.51 Accidental puncture and laceration of a circulatory system organ or structure during a circulatory system procedure; I82.431 Acute embolism and thrombosis of right popliteal vein; I82.441 Acute embolism and thrombosis of right tibial vein; I10 Essential (primary) hypertension; N40.0 Benign prostatic hyperplasia without lower urinary tract symptoms; E11.40 Type 2 diabetes mellitus with diabetic neuropathy, unspecified